=== PATIENT | female | born 1970 | race Caucasian/White ===

== ENCOUNTER 2023-05-25 08:33 | Day surgery (SDC) | payer MEDICAID ==
[~2023-05-25] VITALS: Ht 162.6 cm; Wt 77.1 kg
[2023-05-25 09:39] LABS: HCG,QUAL RESULT NEGATIVE (NEGATIVE)
[2023-05-25 10:31] VITALS: O2SAT 99
[2023-05-25] MEDS ORDERED: MIDAZOLAM HCL 5 MG/5 ML VIAL ONE (11:19)
[2023-05-25] MEDS ORDERED: MEPERIDINE 100 MG INJ. 100 MG/ML VIAL ONE (11:19)
[2023-05-25 15:13] VITALS: BP_SYST 158; PULSE 74; RESP 20
== END 2023-05-25 12:30 | disposition home or self-care (01) ==
LOC: SDS 08:33 → SMU 08:34 → SDS 12:30
PROVIDERS: ATTEND Internal Medicine Gastroenterology
DX: R19.7 Diarrhea, unspecified (principal); K63.5 Polyp of colon; K64.8 Other hemorrhoids; I10 Essential (primary) hypertension; E03.9 Hypothyroidism, unspecified; F12.90 Cannabis use, unspecified, uncomplicated; Z79.899 Other long term (current) drug therapy; Z98.890 Other specified postprocedural states
CPT/HCPCS: 99152; 84703; 45380; 88305; G0378; J2250; J2175